=== PATIENT | female | born 1950 | race Hispanic/Latino ===

== ENCOUNTER 2017-05-21 18:13 | Emergency (ER) | payer MEDICARE ==
--- NOTE | 2017-05-21 19:05 | RAD ---
PA AND LATERAL CHEST: 05/21/17 COMPARISON: 03/24/16 study. HISTORY: Cough. Heart size is within normal limits. There is some slight increase to the parenchymal changes in the right mid and lower lung mcnamara suggesting some infiltrative change. The left lower lobe changes are felt to be fairly similar to the previous exam. IMPRESSION: Chronic lung change with suggestion of some developing infiltrate in the right mid and lower lung fie lds. POS: [facility]
[2017-05-21] MEDS ORDERED: Acetaminophen 325 MG TAB ONE (19:16)
[2017-05-21 20:01] LABS: #Basophils 0.1 thou/uL (0.0-0.2); #Lymphocytes 1.5 thou/uL (1.20-3.40); #Monocytes 0.6 thou/uL (0.11-0.59); #Neutrophils 8.5 thou/uL (1.40-6.50); %Basophils 0.8 % (0.0-1.0); %Eosinophils 0.1 % (0.0-10.0); %Lymphocytes 14.4 % (21.0-51.0); %Monocytes 5.5 % (0.0-10.0); %Neutrophils 79.2 % (42.0-75.0); Hemoglobin 12.1 g/dL (12.0-16.0); Mean Corpuscular HGB CONC 33.5 g/dL (32.0-36.0); Mean Corpuscular Hemoglobin 29.4 pg (27.0-31.0); Mean Corpuscular Volume 87.7 fl (81.0-99.0); Mean Platelet Volume 6.7 fL (7.4-10.4); Platelet Count 152 thou/uL (130-400); RBC Distribution Width 11.7 % (11.5-14.5); Red Blood Cell (RBC) Count 4.14 mill/uL (4.20-5.40); White Blood Cell (WBC) Count 10.7 thou/uL (4.8-10.8)
[2017-05-21] MEDS ORDERED: cefTRIAXone\\ROCEPHIN 1 GM VIAL ONE (20:01)
[2017-05-21] MEDS ORDERED: Sodium Chloride 0.9% 100 ML ONE (20:02)
[2017-05-21 20:18] LABS: ALT (SGPT) 17 U/L (8-55); AST (SGOT) 16 U/L (5-34); Albumin 3.8 g/dL (3.4-4.8); Alkaline Phosphatase 106 U/L (40-150); Anion Gap 14 mmol/L (10-20); BUN (Urea Nitrogen) 10 mg/dL (9.8-20.1); Calc. Creatinine Clearance 0 mL/min (70-130); Calcium 9.1 mg/dL (7.8-10.44); Carbon Dioxide 22 mmol/L (23-31); Chloride 100 mmol/L (98-107); Estimated GFR-MDRD 78; Globulin 3.5 g/dL (2.4-3.5); Glucose 138 mg/dL (80-115); Potassium 3.4 mmol/L (3.5-5.1); Protein, Total 7.3 g/dL (6.0-8.3); Sodium 133 mmol/L (136-145)
[2017-05-21] MEDS ORDERED: Azithromycin 500 MG VIAL ONE ×2 (21:01→21:09)
[2017-05-21] MEDS ORDERED: Ondansetron ODT 4 MG TAB ONE (21:40)
== END 2017-05-21 22:27 | disposition home or self-care (01) ==
LOC: SCSER 18:13
DX: J44.0 Chronic obstructive pulmonary disease with (acute) lower respiratory infection (principal); J18.9 Pneumonia, unspecified organism; E78.5 Hyperlipidemia, unspecified; I10 Essential (primary) hypertension; F17.210 Nicotine dependence, cigarettes, uncomplicated
CPT/HCPCS: 36415; 71046; 80053; 85025; 87040; 94640; 96365; 96367; 99406; J0456; J0696; J7050; J7620; Q0162

== ENCOUNTER 2017-09-05 16:28 | Emergency (ER) | payer MEDICARE ==
[2017-09-05] MEDS ORDERED: Meclizine HCl 25 MG TAB ONE (16:36)
[2017-09-05] MEDS ORDERED: Lorazepam 2 MG/ML VIAL ONE (16:38)
--- NOTE | 2017-09-05 17:31 | CT ---
CT OF BRAIN PERFORMED WITHOUT CONTRAST ENHANCEMENT: 09/05/17 HISTORY: Syncope. The ventricular and cisternal system shows some generalized atrophy. There is no signs of intracerebr al hemorrhage or extra-axial fluid collections. Mastoid air cells and visualized sinuses are clear. IMPRESSION: No acute intracranial abnormalities. POS: [facility]
[2017-09-05 17:35] LABS: #Basophils 0.1 thou/uL (0.0-0.2); #Eosinphils 0.1 thou/uL (0.0-0.7); #Lymphocytes 1.8 thou/uL (1.20-3.40); #Monocytes 0.5 thou/uL (0.11-0.59); #Neutrophils 5.7 thou/uL (1.40-6.50); %Basophils 1.8 % (0.0-1.0); %Eosinophils 1.6 % (0.0-10.0); %Lymphocytes 21.6 % (21.0-51.0); %Monocytes 6.6 % (0.0-10.0); %Neutrophils 68.5 % (42.0-75.0); Hemoglobin 12.7 g/dL (12.0-16.0); Mean Corpuscular HGB CONC 34.2 g/dL (32.0-36.0); Mean Corpuscular Hemoglobin 30.4 pg (27.0-31.0); Mean Corpuscular Volume 88.8 fl (81.0-99.0); Mean Platelet Volume 6.9 fL (7.4-10.4); Platelet Count 166 thou/uL (130-400); RBC Distribution Width 12.6 % (11.5-14.5); Red Blood Cell (RBC) Count 4.18 mill/uL (4.20-5.40); White Blood Cell (WBC) Count 8.3 thou/uL (4.8-10.8)
[2017-09-05 17:42] LABS: Anion Gap 14 mmol/L (10-20); BUN (Urea Nitrogen) 8 mg/dL (9.8-20.1); Calc. Creatinine Clearance 0 mL/min (70-130); Calcium 9.2 mg/dL (7.8-10.44); Carbon Dioxide 25 mmol/L (23-31); Chloride 106 mmol/L (98-107); Estimated GFR-MDRD 79; Glucose 118 mg/dL (80-115); Potassium 3.7 mmol/L (3.5-5.1); Sodium 141 mmol/L (136-145)
[2017-09-05 17:48] LABS: Troponin I Less than 0.010 ng/mL (< 0.028)
--- NOTE | 2017-09-05 20:29 | MRI ---
MRI BRAIN 09/05/17 HISTORY: Syncope. Noncontrast enhanced MRI images of the brain obtained. The brain demonstrates deep white matter ischemic changes. This is seen in the periventricular white matter as well as in the right centrum semiovale and central to posterior pontine regions. No evidence of areas of diffusion restriction seen to suggest acute strokes. No evidence of acute intracranial masses, hemorrhages or strokes seen. IMPRESSION: Deep white matter ischemic change. No acute intracranial abnormality. POS: [facility]
== END 2017-09-05 18:25 | disposition home or self-care (01) ==
LOC: SCSER 16:28
DX: H81.10 Benign paroxysmal vertigo, unspecified ear (principal); E78.5 Hyperlipidemia, unspecified; I10 Essential (primary) hypertension; F17.210 Nicotine dependence, cigarettes, uncomplicated
CPT/HCPCS: 70450; 70551; 80048; 82553; 84484; 85025; 93005; 96374; J2060

== ENCOUNTER 2017-11-25 15:26 | Outpatient (CLI) | payer MEDICARE ==
--- NOTE | 2017-11-25 16:27 | CT ---
CT CHEST NONCONTRAST LOW DOSE PULMONARY LUNG SCAN: History: Tobacco abuse. FINDINGS: Lungs are hyperinflated with mild peripheral scarring. No solid or cystic nodules. Occasional small b ullae. No pleural fluid or pneumothorax. Calcification within the arterial structures including the coronary arteries. IMPRESSION: 1. Lung RADS category 1 - negative. Suggest routine follow up. 2. Atherosclerosis. 3. COPD. POS: [facility]
== END 2017-11-25 15:27 | disposition home or self-care (01) ==
LOC: CT 15:26
PROVIDERS: ATTEND Family Medicine
DX: F17.210 Nicotine dependence, cigarettes, uncomplicated (principal); J44.9 Chronic obstructive pulmonary disease, unspecified; I25.10 Atherosclerotic heart disease of native coronary artery without angina pectoris
CPT/HCPCS: G0297

== ENCOUNTER 2018-07-03 18:54 | Emergency (ER) | payer MEDICARE ==
[2018-07-03] MEDS ORDERED: Ondansetron PF 4 MG/2 ML Vial ONE (19:16)
[2018-07-03 19:34] LABS: #Basophils 0.2 thou/uL (0.0-0.2); #Lymphocytes 1.3 thou/uL (1.20-3.40); #Monocytes 0.8 thou/uL (0.11-0.59); #Neutrophils 4.2 thou/uL (1.40-6.50); %Basophils 2.9 % (0.0-1.0); %Eosinophils 0.5 % (0.0-10.0); %Lymphocytes 20.5 % (21.0-51.0); %Monocytes 11.7 % (0.0-10.0); %Neutrophils 64.4 % (42.0-75.0); Hemoglobin 14.8 g/dL (12.0-16.0); Mean Corpuscular HGB CONC 33.6 g/dL (32.0-36.0); Mean Corpuscular Hemoglobin 29.9 pg (27.0-31.0); Mean Platelet Volume 7.1 fL (7.4-10.4); Platelet Count 180 thou/uL (130-400); RBC Distribution Width 12.6 % (11.5-14.5); Red Blood Cell (RBC) Count 4.96 mill/uL (4.20-5.40); White Blood Cell (WBC) Count 6.5 thou/uL (4.8-10.8)
[2018-07-03 19:47] LABS: ALT (SGPT) 22 U/L (8-55); AST (SGOT) 22 U/L (5-34); Albumin 4.6 g/dL (3.4-4.8); Alkaline Phosphatase 111 U/L (40-150); Anion Gap 18 mmol/L (10-20); BUN (Urea Nitrogen) 23 mg/dL (9.8-20.1); Bilirubin, Total 0.5 mg/dL (0.2-1.2); Calc. Creatinine Clearance 0 mL/min (70-130); Calcium 9.8 mg/dL (7.8-10.44); Carbon Dioxide 25 mmol/L (23-31); Chloride 100 mmol/L (98-107); Estimated GFR-MDRD 62; Globulin 3.3 g/dL (2.4-3.5); Glucose 127 mg/dL (80-115); Potassium 3.6 mmol/L (3.5-5.1); Protein, Total 7.9 g/dL (6.0-8.3); Sodium 139 mmol/L (136-145)
== END 2018-07-03 20:17 | disposition home or self-care (01) ==
LOC: SCSER 18:54
DX: R11.2 Nausea with vomiting, unspecified (principal); R19.7 Diarrhea, unspecified; E78.5 Hyperlipidemia, unspecified; I10 Essential (primary) hypertension; F17.210 Nicotine dependence, cigarettes, uncomplicated
CPT/HCPCS: 80053; 85025; 96361; 96374; J2405